=== PATIENT | female | born 1990 | race Caucasian/White ===

== ENCOUNTER → 2021-02-07 14:09 | Outpatient (CLI) | payer OTHER, SELFPAY ==
--- NOTE | ~2021-02-07 | MMUS_ITS ---
EXAMINATION: MM diagnostic antwon BI w samantha, US breast RT complete HISTORY: Right breast pain TECHNIQUE: ML, MLO and craniocaudal 3-D tomosynthesis images of both breasts were performed and [facility] were generated. CAD analysis was submitted and interpreted. High resolution complete right breast ultrasound was performed. COMPARISON: 02/09/2017 Limited right breast ultrasound, reported negative BREAST PARENCHYMAL COMPOSITION: The breasts are extremely dense, which lowers the sensitivity of mamm ography. FINDINGS: MAMMOGRAPHIC FINDINGS: No suspicious mass or architectural distortion, malignant calcification, skin thickening or retractio n is detected. ULTRASOUND: 6:00 5 cm from nipple: 3 x 5.3 x 3.9 mm circumscribed sonolucency with through transmission posterior enhancement consistent with small cyst. 11:00 2 cm from nipple: 2.9 x 5.1 x 4 mm circumscribed sonolucency with through transmission posterio r enhancement consistent with simple cyst. No suspicious mass or shadowing is evident. IMPRESSION: 1. No mammographic evidence of malignancy 2. Routine mammographic screening is recommended beginning at age 40 BI-RADS Category 2: Benign finding(s). Reviewed, dictated and finalized at location A. IMPRESSION: 1. No mammographic evidence of malignancy 2. Routine mammographic screening is recommended beginning at age 40 BI-RADS Category 2: Benign finding(s).
== END ==
PROVIDERS: Visit Provider Advanced Practice Midwife
DX: N60.01 Solitary cyst of right breast (principal)
CPT/HCPCS: 76641; 77062; 77066; G0279

== ENCOUNTER → 2022-02-24 08:26 | Outpatient (CLI) | payer OTHER, SELFPAY ==
--- NOTE | ~2022-02-24 | US_ITS ---
EXAMINATION: US breast RT limited HISTORY: Pain of the lower-outer quadrant of the right breast and right axilla. TECHNIQUE: Limited right breast ultrasound is performed in the lower inner quadrant and in the right axilla. FINDINGS: There is no evidence of focal abnormal cystic or solid mass in the vicinity of the patient' s reported right breast pain. Lymph nodes seen in the right axilla demonstrate normal morphology. IMPRESSION: No specific sonographic correlate is identified for the patient's reported breast pain. Further evalu ation at this time should be based on clinical assessment. Continued follow-up physical examination i s recommended. BI-RADS Category 1: Negative Reviewed, dictated and finalized at location A. IMPRESSION: No specific sonographic correlate is identified for the patient's reported [address] st pain. Further evaluation at this time should be based on clinical assessment . Continued follow-up physical examination is recommended. BI-RADS Category 1: Negative
== END ==
PROVIDERS: PCP Physician Assistant; Visit Provider Nurse Practitioner
DX: N64.4 Mastodynia (principal)
CPT/HCPCS: 76642

== ENCOUNTER 2022-08-21 16:08 | Emergency (ER) | payer OTHER, SELFPAY ==
[2022-08-21 16:20] VITALS: BP 119/72; PULSE 93; RESP 12; TEMP 36.7; O2SAT 100
--- NOTE | 2022-08-21 16:38 | ED.URI ---
HPI - URI/Sore Throat General Chief Complaint: Upper Respiratory Infection Stated Complaint: Sinus Time Seen by Provider: 08/21/22 17:06 Source: patient, RN notes reviewed and old records reviewed Mode of arrival: ambulatory Limitations: no limitations History of Present Illness HPI Narrative: 31-year-old female presents to the [facility] with complaints sinus congestion, sinus pain for 4 weeks. Has tried taking Mucinex. Uses Flonase and Zyrtec daily. Has tried saline spray as well as Vicks. Denies any fevers, chest pain, shortness of breath. MD elicited complaint: nasal congestion Onset (ago): week(s) (4) Related Data Home Medications Medication Instructions Recorded Confirmed hydrochlorothiazide 12.5 mg capsule 12.5 mg PO DAILY 08/21/22 08/21/22 valsartan 160 mg tablet 160 mg PO DAILY 08/21/22 08/21/22 Allergies Allergy/AdvReac Type Severity Reaction Status Date / Time Penicillins Allergy Mild Rash Verified 08/21/22 16:26 Review of Systems Review of Systems: All systems reviewed & are unremarkable except as noted in HPI and below Constitutional: Constitutional: Reports no additional constitutional complaints Eyes: Eyes: Reports no additional eye complaints ENT: Reports as per HPI and Reports nasal congestion Cardiovascular: Cardiovascular: Reports no additional cardiovascular complaints, Denies chest pain and Denies dyspnea Respiratory: Respiratory: Reports no additional respiratory complaints, Denies chest congestion, Denies cough and Denies dyspnea Gastrointestinal: Gastrointestinal: Reports no additional gastrointestinal complaints, Denies abdominal pain, Denies nausea and Denies vomiting Musculoskeletal: Musculoskeletal: Reports no additional musculoskeletal complaints Integumentary/Breasts: Skin/Breast: Reports system reviewed and no additional complaints, except as docu Neurologic: Reports system reviewed and no additional complaints, except as documented Psychiatric: Psychiatric: Reports no additional psychiatric complaints Allergic/Immunologic: Allergic/Immunologic: Reports no additional allergic/immunologic complaints PMFSH Comments At the time of my signature, I reviewed and agree with the nursing past medical, surgical, social, and family history. There is no relevant family history pertinent to the patient complaint. Exam Const: General: cooperative, healthy appearing, comfortable, no acute distress, well developed, alert, average body habitus and well nourished Nutritional Appearance: average body habitus and well nourished Orientation/consciousness: patient oriented x3 Limitations: no limitations HENMT: Head: normal to inspection Ears: hearing grossly normal bilaterally and external ears normal Face/Nose/Sinus: Normal external nose present, Normal nares present, Abnormal mucous membranes and turbinates present boggy bilateral and erythematous bilateral and normal facial exam Face and sinus: normal facial exam, face symmetric and sinus tenderness frontal and maxillary Mouth: Yes Normal oral and palatal mucosa present, Yes lip normal and Yes moist mucous membranes Throat: posterior oropharynx normal and uvula midline Eyes: General: appearance normal, both eyes and all related structures Alignment and Position: alignment normal Periorbital: periorbital findings normal Conjunctivae: conjunctivae normal Pupils: Equal, round and reactive pupils present EOM: EOMs intact bilaterally Neck: Neck: normal visual inspection, full ROM, no lymphadenopathy and no meningeal signs Chest: Chest palpation & inspection: normal inspection of the chest Resp: Effort & Inspection: normal respiratory effort and able to speak in complete sentences Auscultation: clear to auscultation bilaterally, no crackles, no rales, no rhonchi and no wheezes Cardio: Rate: regular rate Rhythm: regular rhythm GI: Inspection: normal to inspection GI Palp: No abdominal tenderness Back/Spine/Pelvis: Cervical Spine: ce
== END 2022-08-21 17:17 | disposition home or self-care (01) ==
PROVIDERS: Emergency Provider Nurse Practitioner; PCP Physician Assistant
DX: J32.9 Chronic sinusitis, unspecified (principal); I10 Essential (primary) hypertension
CPT/HCPCS: 99213; G0463